=== PATIENT | female | born 1975 | race Caucasian/White ===

== ENCOUNTER → 2021-02-07 | Outpatient (CLI) | payer BC ==
[~2021-02-07] MED LIST: ALDACTONE25 MG PO; FERROUS SULFAT325 M2 PO; HYZAAR 100-251 EACH PO; LOPRESSOR50 MG PO
[2021-02-07 11:14] LABS: HEMOGLOBIN 12.2 gm/dl (12.3-15.3); RED BLOOD COUNT 4.83 M/UL (4.00-5.10)
[2021-02-07 11:52] LABS: BUN/CREATININE RATIO 22 (0-10)
== END ==
LOC: MAMO 01-11 14:30
PROVIDERS: Family Medicine
DX: Z12.31 Encounter for screening mammogram for malignant neoplasm of breast (principal); I10 Essential (primary) hypertension; N63.13 Unspecified lump in the right breast, lower outer quadrant
CPT/HCPCS: 36415; 77063; 77067; 80053; 80061; 84443; 85027

== ENCOUNTER → 2021-03-20 | Outpatient (CLI) | payer BC | LOC: US 14:00 | DX: N63.10 Unspecified lump in the right breast, unspecified quadrant (principal) | CPT/HCPCS: 76641-RT; 77065; G0279 ==

== ENCOUNTER 2021-06-26 14:43 | Emergency (ER) | payer BC ==
[~2021-06-26] VITALS: Ht 162.6 cm; Wt 95.3 kg
== END 2021-06-26 17:10 | disposition home or self-care (01) ==
LOC: ER1 14:43
DX: Z23 Encounter for immunization (principal); U07.1 COVID-19; Z87.442 Personal history of urinary calculi
CPT/HCPCS: 99283; M0243

== ENCOUNTER → 2021-09-06 | Outpatient (CLI) | payer BC | LOC: MAMO 09:58 | DX: N63.10 Unspecified lump in the right breast, unspecified quadrant (principal) | CPT/HCPCS: 76641-RT; 77065 ==

== ENCOUNTER → 2021-12-02 | Outpatient (CLI) | payer OTHER | LOC: LAB 19:30 | DX: U07.1 COVID-19 (principal) | CPT/HCPCS: 0240U ==

== ENCOUNTER 2021-12-15 13:46 | Emergency (ER) | payer BC ==
[2021-12-15 14:19] LABS: HEMOGLOBIN 12.4 gm/dl (12.3-15.3); RED BLOOD COUNT 5.11 M/UL (4.00-5.10); WHITE BLOOD COUNT 9.5 K/UL (4.5-11.0)
[2021-12-15 14:46] LABS: BUN/CREATININE RATIO 17 (0-10)
[2021-12-15] MEDS ORDERED: CATAPRES 0.1MG0.1 MG PO (16:49)
== END 2021-12-15 17:00 | disposition home or self-care (01) ==
LOC: ER1 13:46
PROVIDERS: Physician Assistant Medical
DX: I10 Essential (primary) hypertension (principal); Z87.442 Personal history of urinary calculi
CPT/HCPCS: 70450; 71045; 80053; 81001; 82550; 82553; 83874; 84484; 85025; 93005; 96374; 96376; 99284; J0360

== ENCOUNTER 2022-01-30 21:39 | Emergency (ER) | payer BC ==
[~2022-01-30 21:39] MED LIST changes: +CATAPRES 0.1MG0.1 MG PO
[2022-01-30 22:20] LABS: HEMOGLOBIN 11.6 gm/dl (12.3-15.3); RED BLOOD COUNT 4.67 M/UL (4.00-5.10); WHITE BLOOD COUNT 11.8 K/UL (4.5-11.0)
[2022-01-30] MEDS ORDERED: FLOMAX0.4 MG PO (23:59)
[2022-01-30] MEDS ORDERED: ZOFRAN ODT 4 MG4 MG PO (23:59)
[2022-01-30] MEDS ORDERED: TORADOL 10 MG T10 MG PO (23:59)
== END 2022-01-31 00:15 | disposition home or self-care (01) ==
LOC: ER1 21:39
PROVIDERS: Physician Assistant
DX: N13.2 Hydronephrosis with renal and ureteral calculous obstruction (principal); Z87.442 Personal history of urinary calculi; I10 Essential (primary) hypertension; F17.290 Nicotine dependence, other tobacco product, uncomplicated
CPT/HCPCS: 80053; 81001; 82150; 83690; 84703; 85025; 87086; 96374; 96375; 99284